=== PATIENT | male | born 1980 | race Caucasian/White ===

== ENCOUNTER 2016-05-18 07:33 | Emergency (ER) | payer OTHER ==
[~2016-05-18] VITALS: Ht 180.3 cm; Wt 99.0 kg
[2016-05-18 07:42] VITALS: BP 123/78; PULSE 62; RESP 18; TEMP 98.4; O2SAT 97
[2016-05-18] MEDS ORDERED: PROPARACAINE HCL 0.5% OPHT SOLN 15 ML BTL EACH EYE ONE (08:00)
[2016-05-18] MEDS ORDERED: NORC5TAB PO (08:12)
[2016-05-18] MEDS ORDERED: POLY10O RIGHT EYE (08:12)
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
== END 2016-05-18 08:21 | disposition home or self-care (01) ==
LOC: PHED 07:33
DX: S05.01XA Injury of conjunctiva and corneal abrasion without foreign body, right eye, initial encounter (principal); W50.0XXA Accidental hit or strike by another person, initial encounter
CPT/HCPCS: 99283